=== PATIENT | male | born 1965 | race Caucasian/White ===

== ENCOUNTER 2021-02-12 05:36 | Emergency (ER) | payer BC, OTHER ==
[~2021-02-12] VITALS: Ht 180.3 cm; Wt 124.9 kg
[2021-02-12] MEDS ORDERED: CLOP75TA2 (05:53)
[2021-02-12] MEDS ORDERED: ASPI-1 PO (05:53)
[2021-02-12] MEDS ORDERED: CEPH500C (05:53)
[2021-02-12] MEDS ORDERED: ATOR1TAB21 (05:53)
[2021-02-12] MEDS ORDERED: LISI-898 (05:53)
[2021-02-12] MEDS ORDERED: CARV6.25 (05:53)
[2021-02-12] MEDS ORDERED: GABAPENTIN 300 MG CAP PO ONE (07:15)
[2021-02-12] MEDS ORDERED: GABA-282 PO (07:17)
--- OUTSIDE RECORDS SUMMARY | 2021-02-12 07:35 | CCD ---
Author Author [facility] Address Unknown Phone Unavailable Support Name Relationship Address Phone RE Next Of Kin Unknown Unavailable ESTEBAN AGUIRRE Next Of Kin [id number] [place] [address] [place] Next Of Kin Unknown Unavailable Re-disclosure Warning The records that you are about to access may contain information from federally-assisted alcohol or drug abuse programs. If such information is present, then the following federally mandated warning applies: This information has been disclosed to you from records protected by federal confidentiality rules (42 CFR part 2). The federal rules prohibit you from making any further disclosure of this information unless further disclosure is expressly permitted by the written consent of the person to whom it pertains or as otherwise permitted by 42 CFR part 2. A general authorization for the release of medical or other information is NOT sufficient for this purpose. The Federal rules restrict any use of the information to criminally investigate or prosecute any alcohol or drug abuse patient.The records that you are about to access may contain highly sensitive health information, the redisclosure of which is protected by Article 27-F of the [facility] Public Health law. If you continue you may have access to information: Regarding HIV / AIDS; Provided by facilities licensed or operated by the [facility] Office of Mental Health; or Provided by the [facility] Office for People With Developmental Disabilities. If such information is present, then the following [facility] mandated warning applies: This information has been disclosed to you from confidential records which are protected by state law. State law prohibits you from making any further disclosure of this information without the specific written consent of the person to whom it pertains, or as otherwise permitted by law. Any unauthorized further disclosure in violation of state law may result in a fine or long-term sentence or both. A general authorization for the release of medical or other information is NOT sufficient authorization for further disc losure. Medications No Information Insurance Providers Payer name Policy type / Coverage type Policy ID Covered democrat ID Covered democrat's relationship to [place] Policy [place] Plan Information [facility] [id number] FRANNY TORRES [facility] CLAIMS ONLY [id number] Problems, Conditions, and Diagnoses No Information Surgeries/Procedures No Information Results No Information Social History No Information
[2021-02-12 07:52] VITALS: BP 166/94
== END 2021-02-12 07:55 | disposition home or self-care (01) ==
LOC: M ED 05:36
DX: G50.1 Atypical facial pain (principal); I10 Essential (primary) hypertension; Z79.82 Long term (current) use of aspirin; Z79.899 Other long term (current) drug therapy